=== PATIENT | female | born 1975 ===

== ENCOUNTER 2017-03-20 14:37 | Emergency (ER) | payer OTHER, SELFPAY ==
[2017-03-20 14:37] VITALS: BMI 35.2
[2017-03-20 15:00] VITALS: BP 115/54; RESP 18; TEMP 97.2; O2SAT 99
[2017-03-20] MEDS ORDERED: Sodium Chloride 0.9% 1,000 ML IV STA (15:49)
[2017-03-20 16:09] LABS: RBC URINE 4 /hpf (0-3); URINE BILIRUBIN NEGATIVE (NEGATIVE); URINE BLOOD NEGATIVE (NEGATIVE); URINE COLOR YELLOW (YELLOW); URINE GLUCOSE (UA) NEG (Normal); URINE KETONE NEGATIVE (NEGATIVE); URINE LEUKOCYTE ESTERASE NEG Leu/uL (Negative); URINE PROTEIN NEGATIVE (NEGATIVE); URINE UROBILINOGEN 0.2-1.0 mg/dL (0.2-1.0); WBC URINE 1 /hpf (0-5)
--- NOTE | 2017-03-20 16:43 | ED PDOC ---
HPI: General Adult Time Seen by Provider: 03/20/17 15:18 Chief Complaint (Nursing): Dizziness/Lightheaded History Per: Patient Additional Complaint(s): Pt. states this morning she woke up with dizziness and numbness to the L side of her head. Pt. states dizziness became worse when she attempted to walk. Dizziness is worse when she ambulates. Pt. 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 Has not had a seizure since she was a teenager. Denies head injury, fever, numbness, tingling, vomiting, abdominal pain, rash. Past Medical History Reviewed: Historical Data, Nursing Documentation, Vital Signs Vital Signs: Last Vital Signs Temp 97.2 F L 03/20/17 14:56 Pulse 70 03/20/17 14:56 Resp 18 03/20/17 14:56 BP 115/54 L 03/20/17 14:56 Pulse Ox 99 03/20/17 16:46 - Medical History PMH: Anemia, Kidney Stones Denies: Chronic Kidney Disease - Surgical History Surgical History: Cholecystectomy, ( x 1) - Family History Family History: States: No Known Family Hx, Diabetes, Hypertension - Home Medications Home Medications: Ambulatory Orders Medication Instructions Recorded Acetaminophen [Tylenol Extra 500 mg PO DAILY PRN 09/07/14 Strength] Acetaminophen/Oxycodone Hydr 5 - 325 mg PO PRN PRN 10/23/14 [APAP/Oxycodone 325 mg-5 mg] Calcium/Iron [Ferosul 112 mg-50 mg] 325 mg PO DAILY 10/23/14 Ciprofloxacin [Cipro] 500 mg PO DAILY 10/23/14 Tamsulosin [Flomax] 0.4 mg PO DAILY 10/23/14 oxyCODONE/Acetaminophen [Percocet 1 tab PO Q6H PRN #10 tab 10/28/14 5/325 mg Tab] Docusate Sodium [Colace] 1 tab PO BID #20 sgl 11/03/14 Ondansetron [Zofran] 1 tab PO Q8H PRN #15 tab 11/03/14 oxyCODONE/Acetaminophen [Percocet 1 - 2 ea PO Q4 PRN #20 tab 11/03/14 5/325 mg Tab] Dicyclomine [Dicyclomine HCl] 10 mg PO TID #6 cap 03/24/15 Ondansetron [Zofran] 4 mg PO Q8H #10 tab 03/24/15 Ondansetron ODT [Zofran ODT] 4 mg PO Q8 PRN #12 odt 01/13/16 Polyethylene Glycol 3350 [Miralax] 1 packet PO DAILY #5 packet 01/13/16 Clindamycin [Cleocin] 300 mg PO TID #21 cap 04/15/16 traMADol [Ultram] 50 mg PO TID PRN #15 tab 04/15/16 Meclizine [Antivert] 1 - 2 mg PO Q6 PRN #30 tab 03/20/17 Ondansetron ODT [Zofran ODT] 4 mg PO TID #21 odt 03/20/17 - Allergies Allergies/Adverse Reactions: Allergies Allergy/AdvReac Type Severity Reaction Status Date / Time ampicillin Allergy RASH Verified 01/13/16 09:14 Review of Systems ROS Statement: Except As Marked, All Systems Reviewed And Found Negative Gastrointestinal: Positive for: Nausea Neurological: Positive for: Dizziness Physical Exam - Reviewed Nursing Documentation Reviewed: Yes Vital Signs Reviewed: Yes - Physical Exam Appears: Positive for: Well, Non-toxic, No Acute Distress Head Exam: Positive for: ATRAUMATIC, NORMAL INSPECTION, NORMOCEPHALIC Skin: Positive for: Normal Color, Warm, DRY Eye Exam: Positive for: Normal appearance, EOMI, PERRL. Negative for: Nystagmus ENT: Positive for: Normal ENT Inspection Neck: Positive for: Normal, Painless ROM Cardiovascular/Chest: Positive for: Regular Rate, Rhythm Respiratory: Positive for: CNT, Normal Breath Sounds Gastrointestinal/Abdominal: Positive for: Normal Exam, Soft. Negative for: Tenderness Back: Positive for: Normal Inspection. Negative for: L CVA Tenderness, R CVA Tenderness Extremity: Positive for: Normal ROM Neurologic/Psych: Positive for: Alert, Oriented. Negative for: Aphasia, Facial Droop - Laboratory Results Result Diagrams: 03/20/17 16:31 03/20/17 16:31 - ECG ECG: Positive for: Interpreted By Me ECG Rhythm: Positive for: Sinus Bradycardia. Negative for: ST/T Changes Rate: 59 O2 Sat by Pulse Oximetry: 99 - Progress ED Course And Treament: Labs ordered. CT head w/o contrast ordered. Antivert 50mg PO, zofran 4mg IV, IV NS bolus ordered. CT head w/o contrast: negative On re-evaluation, pt. states she is feeling much better. Dizziness has resolved. Gait steady unassisted. Disposition - Clinical Impression Clinical Impression: Dizziness - Patient ED Disposition Is Patient to be Admitted: No - Disposition Referrals: [facility] [Outside] Disposition: Routine/Home Disposition Time: 18:52 Condition: IMPROVED Prescriptions: Meclizine [Antivert] 1 - 2 mg PO Q6 PRN #30 tab PRN Reason: Dizziness Ondansetron ODT [Zofran ODT] 4 mg PO TID #21 odt Instructions: Vertigo (ED) Forms: [employer] ([place])
[2017-03-20 16:51] LABS: ALKALINE PHOSPHATASE 86 U/L (38-126); ALT/SGPT 38 U/L (9-52); AST/SGOT 28 U/L (14-36); BILIRUBIN,TOTAL 0.2 mg/dl (0.2-1.3); BLOOD UREA NITROGEN 15 mg/dl (7-17); CALCIUM 8.8 mg/dL (8.4-10.2); CARBON DIOXIDE 27 mmol/L (22-30); CHLORIDE 106 mmol/L (98-107); GFR AFRICAN-AMERICAN > 60; GLUCOSE,RANDOM 98 mg/dL (65-105); POTASSIUM 3.9 MMOL/L (3.6-5.0); SODIUM 142 mmol/l (132-148); TOTAL PROTEIN 7.9 G/DL (6.3-8.2)
[2017-03-20 16:52] LABS: BASO # 0.1 K/uL (0.0-0.2); BASO % 0.7 % (0.0-2.0); EOS # 0.1 K/uL (0.0-0.7); EOS % 0.8 % (0.0-4.0); HEMATOCRIT 32.7 % (34.0-47.0); LYMPH # 2.4 K/uL (1.0-4.3); MEAN CELL VOLUME 83.4 fl (81.0-99.0); MEAN CORPUSCULAR HEMOGLOBIN 27.4 pg (27.0-31.0); MEAN CORPUSCULAR HGB CONC 32.9 g/dL (33.0-37.0); MEAN PLATELET VOLUME 9.1 fl (7.2-11.7); MONO # 0.6 K/uL (0.0-0.8); MONO % 8.4 % (0.0-10.0); NEUT # 4.5 K/uL (1.8-7.0); NEUT % 59.1 % (50.0-75.0); NRBC % 0.1 % (0.0-0.0); RED CELL DISTRIBUTION WIDTH 14.4 % (11.5-14.5); WHITE BLOOD COUNT 7.7 K/uL (4.8-10.8)
--- NOTE | 2017-03-20 17:49 | CT ---
PROCEDURE: CT HEAD WITHOUT CONTRAST. HISTORY: dizziness COMPARISON: 12/30/2011 TECHNIQUE: Axial computed tomography images were obtained through the head/brain without intravenous contrast. Coronal and sagittal reconstructed images. Radiation dose: Total exam DLP = 886.69 mGy-cm. This CT exam was performed using one or more of the following dose reduction techniques: Automated exposure control, adjustment of the mA and/or kV according to patient size, and/or use of iterative reconstruction technique. FINDINGS: HEMORRHAGE: No intracranial hemorrhage. BRAIN: No mass effect or edema. No atrophy or chronic microvascular ischemic changes. VENTRICLES: Unremarkable. No hydrocephalus. CALVARIUM: Unremarkable. PARANASAL SINUSES: Unremarkable as visualized. No significant inflammatory changes. MASTOID AIR CELLS: Unremarkable as visualized. No inflammatory changes. OTHER FINDINGS: None. IMPRESSION: No acute intracranial abnormalities. No significant findings to account for the clinical presentation. No significant interval change compared to the prior examination(s).
[2017-03-20 18:53] VITALS: PULSE 59
--- NOTE | 2017-03-21 07:36 | CARD ---
APPROVED REPORT EKG Measurement Heart [id number] <Conclusion> Sinus bradycardia Otherwise normal ECG
== END 2017-03-20 19:26 | disposition home or self-care (01) ==
LOC: H.ER 14:37
DX: R42 Dizziness and giddiness (principal); D64.9 Anemia, unspecified
CPT/HCPCS: 70450; 80053; 81003; 81025; 85025; 93005; 96361; 96374; 99282; J2405; J7040

== ENCOUNTER 2018-03-13 17:26 | Emergency (ER) | payer SELFPAY ==
[2018-03-13 17:27] VITALS: BMI 35.2
--- NOTE | 2018-03-13 18:36 | ED PDOC ---
HPI: Headache Time Seen by Provider: 03/13/18 18:21 Chief Complaint (Nursing): Headache Chief Complaint (Provider): Headache History Per: Patient History/Exam Limitations: no limitations Onset/Duration Of Symptoms: Days Current Symptoms Are (Timing): Still Present Preceeding Symptoms: None Associated Symptoms: denies: Blurred Vision, Nausea, Vomiting Additional Complaint(s): 43 y/o female with a PMHx of aneurysm presents to the ED for evaluation of headaches on and off for the past two years. Patient told had a small aneurysm when she was a kid and put on medications including phenobarbital for approximately four years. Patient states she was seen at [place] two year ago and reports had a CT done that showed a small dot. Patient reports she has not seen anyone to follow up. Patient states pain is needle-like on the posterior top of the head. Denies visual changes, focal weakness, blurry vision and parest hesia. Patient reports of taking Advil with no relief. PMD: Hank Anderson Past Medical History Reviewed: Historical Data, Nursing Documentation, Vital Signs Vital Signs: Last Vital Signs Temp 97.8 F 03/13/18 17:51 Pulse 74 03/13/18 17:51 Resp 16 03/13/18 17:51 BP 140/67 03/13/18 17:51 Pulse Ox 100 03/13/18 17:51 - Medical History PMH: Anemia, Kidney Stones Denies: Chronic Kidney Disease - Surgical History Surgical History: Cholecystectomy, ( x 1) - Family History Family History: States: Diabetes, Hypertension - Home Medications Home Medications: Ambulatory Orders Medication Instructions Recorded Acetaminophen [Tylenol Extra 500 mg PO DAILY PRN 09/07/14 Strength] Acetaminophen/Oxycodone Hydr 5 - 325 mg PO PRN PRN 10/23/14 [APAP/Oxycodone 325 mg-5 mg] Calcium/Iron [Ferosul 112 mg-50 mg] 325 mg PO DAILY 10/23/14 Ciprofloxacin [Cipro] 500 mg PO DAILY 10/23/14 Tamsulosin [Flomax] 0.4 mg PO DAILY 10/23/14 oxyCODONE/Acetaminophen [Percocet 1 tab PO Q6H PRN #10 tab 10/28/14 5/325 mg Tab] Docusate Sodium [Colace] 1 tab PO BID #20 sgl 11/03/14 Ondansetron [Zofran] 1 tab PO Q8H PRN #15 tab 11/03/14 oxyCODONE/Acetaminophen [Percocet 1 - 2 ea PO Q4 PRN #20 tab 11/03/14 5/325 mg Tab] Dicyclomine [Dicyclomine HCl] 10 mg PO TID #6 cap 03/24/15 Ondansetron [Zofran] 4 mg PO Q8H #10 tab 03/24/15 Ondansetron ODT [Zofran ODT] 4 mg PO Q8 PRN #12 odt 01/13/16 Polyethylene Glycol 3350 [Miralax] 1 packet PO DAILY #5 packet 01/13/16 Clindamycin [Cleocin] 300 mg PO TID #21 cap 04/15/16 traMADol [Ultram] 50 mg PO TID PRN #15 tab 04/15/16 Meclizine [Antivert] 1 - 2 mg PO Q6 PRN #30 tab 03/20/17 Ondansetron ODT [Zofran ODT] 4 mg PO TID #21 odt 03/20/17 traMADol [Ultram] 50 mg PO Q6H PRN #8 tab 03/13/18 - Allergies Allergies/Adverse Reactions: Allergies Allergy/AdvReac Type Severity Reaction Status Date / Time ampicillin Allergy RASH Verified 03/13/18 17:49 Review of Systems ROS Statement: Except As Marked, All Systems Reviewed And Found Negative Eyes: Negative for: Vision Change Neurological: Positive for: Headache. Negative for: Weakness Physical Exam - Reviewed Nursing Documentation Reviewed: Yes Vital Signs Reviewed: Yes - Physical Exam Appears: Positive for: No Acute Distress Head Exam: Positive for: ATRAUMATIC, NORMOCEPHALIC Skin: Positive for: Normal Color, Warm, Dry Eye Exam: Positive for: Normal appearance, EOMI, PERRL Neck: Positive for: Normal, Painless ROM Cardiovascular/Chest: Positive for: Regular Rate, Rhythm. Negative for: Murmur Respiratory: Positive for: Normal Breath Sounds. Negative for: Respiratory Distress Gastrointestinal/Abdominal: Positive for: Normal Exam, Soft. Negative for: Tenderness Back: Positive for: Normal Inspection. Negative for: L CVA Tenderness, R CVA Tenderness, Vertebral Tenderness Extremity: Positive for: Normal ROM. Negative for: Pedal Edema, Deformity Neurologic/Psych: Positive for: Alert, Oriented. Negative for: Motor/Sensory Deficits - Laboratory Results Result Diagrams: 03/13/18 19:11 03/13/18 19:59 - ECG O2 Sat by Pulse Oximetry: 100 (RA) Pulse Ox Interpretation: Normal Medical Decision Making Medical Decision Making: Time: 1840 Impression: Headache Plan: -- CT Angiography Head -- CMP -- CBC with Differentials -- Morphine 2 mg IV Upon review of old notes, patient had negative CT head on 03/20/17. _ Scribe Attestation: Documented by Chivo Elliott, acting as a scribe for Nasrin Garza MD. Provider Scribe Attestation: All medical record entries made by the Scribe were at my direction and personally dictated by me. I have reviewed the chart and agree that the record accurately reflects my personal performance of the history, physical exam, medical decision making, and the department course for this patient. I have also personally directed, reviewed, and agree with the discharge instructions and disposition. Disposition - Clinical Impression Clinical Impression: Headache - Disposition Referrals: James Rincon MD [Medical Doctor] - Disposition: Routine/Home Disposition Time: 22:18 Condition: IMPROVED Prescriptions: traMADol [Ultram] 50 mg PO Q6H PRN #8 tab PRN Reason: Pain, Severe (8-10) Instructions: Headache, Adult Forms: [facility] (Canadian) Print Language: CITIZEN OF [place]
[2018-03-13 19:21] LABS: BASO # 0.1 K/uL (0.0-0.2); BASO % 0.7 % (0.0-2.0); EOS # 0.2 K/uL (0.0-0.7); EOS % 2.1 % (0.0-4.0); LYMPH # 2.7 K/uL (1.0-4.3); MEAN CELL VOLUME 78.1 fl (81.0-99.0); MEAN CORPUSCULAR HEMOGLOBIN 25.6 pg (27.0-31.0); MEAN CORPUSCULAR HGB CONC 32.8 g/dL (33.0-37.0); MEAN PLATELET VOLUME 8.7 fl (7.2-11.7); MONO # 0.6 K/uL (0.0-0.8); MONO % 7.9 % (0.0-10.0); NEUT # 4.2 K/uL (1.8-7.0); NEUT % 54.3 % (50.0-75.0); NRBC % 0.1 % (0.0-0.0); RBC 4.31 Mil/uL (3.80-5.20); RED CELL DISTRIBUTION WIDTH 16.2 % (11.5-14.5); WHITE BLOOD COUNT 7.6 K/uL (4.8-10.8)
[2018-03-13 20:19] LABS: ALB/GLOB RATIO 0.8 (1.0-2.1); ALBUMIN 3.9 g/dL (3.5-5.0); ALT/SGPT 34 U/L (9-52); AST/SGOT 38 U/L (14-36); BLOOD UREA NITROGEN 16 mg/dl (7-17); CALCIUM 8.8 mg/dL (8.4-10.2); GFR NON-AFRICAN AMERICAN > 60
[2018-03-13] MEDS ORDERED: Iodixanol 320 MG/ML 100 ML BOTTLE IV ONE (20:42)
[2018-03-13] MEDS ORDERED: Sodium Chloride 0.9% 50 ML IV ONE (20:43)
[2018-03-13 22:42] VITALS: BP 100/61; PULSE 71; RESP 20; TEMP 98.1; O2SAT 98
--- NOTE | 2018-03-15 15:18 | CT ---
Date of service: 03/13/2018 PROCEDURE: CT Angiography of the Brain. HISTORY: ISAACS, h/o aneurysm COMPARISON: None available. TECHNIQUE: CT angiography of the intracranial arteries was performed. Coronal and sagittal maximum intensity projection reformated images were generated. Contrast Dose: Visipaque 320, 80 cc Radiation dose:Total exam DLP = 1204.07 mGy-cm. This CT exam was performed using one or more of the following dose reduction techniques: Automated exposure control, adjustment of the mA and/or kV according to patient size, and/or use of iterative reconstruction technique. FINDINGS: INTERNAL CEREBRAL ARTERIES: Unremarkable. The skull base, petrous, cavernous and supraclinoid segments are bilaterally widely patent. ANTERIOR CEREBRAL ARTERIES: Unremarkable. A1 and A2 segments are widely patent. Smaller distal branches unremarkable, as visualized. MIDDLE CEREBRAL ARTERIES: Unremarkable. M1 and M2 segments are widely patent. Perisylvian branches grossly symmetric. POSTERIOR CIRCULATION: Basilar Artery: Unremarkable. Distal Vertebral Arteries: Unremarkable. Posterior Cerebral Arteries: Unremarkable. Posterior Inferior Cerebellar Arteries: Unremarkable. ANEURYSM/ VASCULAR MALFORMATIONS: None. OTHER FINDINGS: None. IMPRESSION: Unremarkable CT Angiography of the Brain. Concordant preliminary report from [facility], in general, with exception of origin left P1 segment discussion, 03/13/2018.
== END 2018-03-13 23:05 | disposition home or self-care (01) ==
LOC: H.ER 17:26
DX: R51 Headache (principal)
CPT/HCPCS: 70496; 80053; 81025; 85025; 99285; J2270; Q9967